=== PATIENT | male | born 1980 | race Caucasian/White ===

== ENCOUNTER → 2016-10-31 | Outpatient (CLI) | payer OTHER ==
[~2016-10-31] VITALS: Ht 177.8 cm; Wt 86.5 kg
[~2016-10-31] MED LIST: INSULIN HUMAN REGULAR 1,000 UNITS/10 ML VIAL SQ PRN; LACTATED RINGER'S 1000 ML IV SCH; METOPROLOL TARTRATE 25 MG TAB PO PRN; PROPOFOL 200 MG/20 ML AMP IV ONE; SODIUM CHLORID 0.9% 500 ML IV SCH
[2016-10-31 08:10] VITALS: BP 136/82; PULSE 80; RESP 18; O2SAT 99
[2016-10-31 10:20] VITALS: TEMP 98.4
[2016-10-31 10:30] VITALS: BP 139/79; PULSE 78; RESP 16; O2SAT 96
--- NOTE | 2016-11-03 10:46 | MR ---
cc: MARCO ROSE DATE: 10/31/2016 1980 PROCEDURE Upper endoscopy with biopsy. INDICATION FOR PROCEDURE Evaluation of gastroesophageal reflux. Photographs were taken. PREMEDICATION Administered by anesthesiology. MONITORING Monitoring was accomplished by pulse oximeter, EKG, blood pressure monitor. PROCEDURE NOTE After informed consent was obtained and the procedure, risks and benefits were explained including risks of bleeding, sepsis, perforation, risks of anesthesia, the patient was placed in the left lateral position. The video endoscope was inserted in the esophagus under direct visualization. The esophagus was carefully inspected. At the EG junction the patient did have some mild inflammatory changes noted consistent with LA class A esophagitis. Two biopsies were taken at the EG junction where there was a slight inflammatory fold noted. There was a hiatal hernia noted as well. The stomach was entered. Gastric mucosa was visualized and found to be normal throughout the retroflexed view, the cardia and fundus were normal otherwise. Scope was passed through the pyloric ring and the first, second, third portion of the duodenum, duodenal mucosa was also unremarkable. The scope was then gradually withdrawn and the patient tolerated the procedure well and was sent to the recovery room in stable condition. IMPRESSION This examination revealed mild esophagitis at the EG junction LA classification A. A 2 cm hiatal hernia was noted. Otherwise, exam is unremarkable. PLAN Would continue acid suppressive therapy with PPI. Follow up clinically as an outpatient. Will follow up biopsies taken. MD JENS Colbert/LIN /10:30 AM /10:26 AM
== END ==
LOC: HEND 07:47
PROVIDERS: ATTEND Internal Medicine Gastroenterology
DX: K21.0 Gastro-esophageal reflux disease with esophagitis (principal); K44.9 Diaphragmatic hernia without obstruction or gangrene
CPT/HCPCS: 43239; 88305; 99156; J7120